=== PATIENT | female | born 1945 | race Caucasian/White ===

== ENCOUNTER 2018-01-19 19:43 | Emergency (ER) | payer MEDICARE, BC ==
[~2018-01-19] VITALS: Ht 165.1 cm; Wt 52.0 kg
[2018-01-19 20:15] VITALS: BP 156/73; PULSE 71; RESP 16; TEMP 97.7; O2SAT 98
[2018-01-19] MEDS ORDERED: MELO15TA20 PO (20:20)
[2018-01-19] MEDS ORDERED: ZOLM2.5T PO (20:20)
[2018-01-19] MEDS ORDERED: ALPR.25 PO (20:20)
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
[2018-01-19] MEDS ORDERED: LIDOCAINE HCL 5% PATCH T-DERMAL ONE (22:15)
[2018-01-19] MEDS ORDERED: KETOROLAC TROMETHAMINE 60 MG/2 ML (IM) VIAL IM ONE (22:15)
[2018-01-19] MEDS ORDERED: LIDO1ADH4 TOPICAL (22:51)
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
== END 2018-01-19 22:55 | disposition home or self-care (01) ==
LOC: PHEFT 19:43
DX: R07.81 Pleurodynia (principal); F41.9 Anxiety disorder, unspecified; V18.0XXA Pedal cycle driver injured in noncollision transport accident in nontraffic accident, initial encounter; Y93.55 Activity, bike riding; Z79.899 Other long term (current) drug therapy
CPT/HCPCS: 71101; 96372; 99283; J1885